=== PATIENT | female | born 1955 | race Caucasian/White ===

== ENCOUNTER 2022-10-22 09:02 | Outpatient (CLI) | payer MEDICARE, BC, SELFPAY ==
[2022-10-22 14:55] LABS: SARS PCR* Negative SARS-CoV-2 (Negative)
== END 2022-10-22 09:03 | disposition home or self-care (01) ==
LOC: FBOREF 09:02
PROVIDERS: PCP Internal Medicine; Visit Provider Orthopaedic Surgery
DX: Z20.822 Contact with and (suspected) exposure to COVID-19 (principal)
CPT/HCPCS: 87635

== ENCOUNTER 2022-10-23 08:48 | Day surgery (SDC) | payer MEDICARE, BC, SELFPAY ==
[2022-10-23] VITALS (25 sets, daily range): BP systolic 88–145; BP diastolic 45–83; PULSE 67–102; RESP 14–20; TEMP 35.7–37.1; O2SAT 92–100; BMI 32.1
[2022-10-23] MEDS: ACETAMINOPHEN 500 MG TABLET 1000 MG PO ×3 (08:50→20:07)
[2022-10-23] MEDS: fentaNYL 100 MCG/2 ML inj IVP (08:50)
[2022-10-23] MEDS: CELECOXIB 200 MG CAPSULE PO ×2 (08:50→20:06)
[2022-10-23] MEDS: OXYCODONE (CR) 10 MG TAB.ER.12H PO (08:50)
[2022-10-23] MEDS: MIDAZOLAM HCL 1 MG/ML inj IVP (08:50)
[2022-10-23] MEDS: LACTATED RINGERS 1000 ML 1,000 ML 100 ML IV (09:00)
[2022-10-23] MEDS: SODIUM CHLORIDE 0.9 % (FLUSH) 10 ML SYRINGE IVF (10:00)
--- NOTE | 2022-10-23 10:19 | SUR.PREOP ---
TIME?OUT:? PT/RN/MDA?VERIFICATION?OF?SURGICAL?SITE left knee,?PROCEDURE,?AND?CONSENT OBTAINED?PRIOR?TO?INVASIVE?PROCEDURE.
--- NOTE | 2022-10-23 10:22 | SUR.PREOP ---
TIME?OUT:?10:12 PT/RN/MDA?VERIFICATION?OF?SURGICAL?SITE left knee,?PROCEDURE,?AND?CONSENT OBTAINED?PRIOR?TO?INVASIVE?PROCEDURE.
[2022-10-23] MEDS: CEFAZOLIN 2 GM INJ IVP (10:51)
--- NOTE | 2022-10-23 10:59 | P.NB_ITS ---
Nerve Block Nerve Block Time Seen by Provider: 10:12 Date Seen: 10/23/22 Type of block requested by surgeon for post-operative analgesia: adductor canal Side: left Time out performed: Yes Verification of patient name: Yes Verification of date of : Yes Site marking: site marked Name of person performing procedure: Frankie Assistants, if any: Caleb Continuous monitoring Was continuous monitoring of O2 sat, B/P, monitor technician, recorded every 15 minutes?: Yes Procedure Checklist: sterile prep, needles and gloves Ultrasound guided. Images saved: Yes Medications given in 5ml increments after negative aspiration: Ropivicaine %: 0.5 mL: 20 Needle gauge: 20 Decadron (mg): 10 Precedex (mcg): 25 Patient tolerated procedure well: Yes Additional comments: Needle noted adjacent to nerve Block Charges Block Charge (with Pro Fee): Femoral Nerve Use of Ultrasound Machine for Block: Yes- US Guidance/pain block
--- NOTE | 2022-10-23 10:59 | W.PM.NB ---
Nerve Block Nerve Block Time Seen by Provider: 10:12 Date Seen: 10/23/22 Type of block requested by surgeon for post-operative analgesia: geniculars Side: left Time out performed: Yes Verification of patient name: Yes Verification of date of : Yes Site marking: site marked Name of person performing procedure: Frankie Assistants, if any: Caleb Continuous monitoring Was continuous monitoring of O2 sat, B/P, property assessment monitor, recorded every 15 minutes?: Yes Procedure Checklist: sterile prep, needles and gloves Medications given in 5ml increments after negative aspiration: Ropivicaine %: 0.5 mL: 9 Needle gauge: 25 Patient tolerated procedure well: Yes Block Charges Block Charge (with Pro Fee): Genicular Nerve Block Use of Ultrasound Machine for Block: No
--- NOTE | 2022-10-23 11:56 | CRLHL7_ITS ---
For Patients: As a result of the Cures Act, medical imaging exams and procedure reports are released immediately into your electronic medical record. You may view this report before your referring provider. If you have questions, please contact your health care provider. INDICATION: Postoperative left total knee arthroplasty, postoperative total knee arthroplasty TECHNIQUE: Knee radiograph 2 views left COMPARISON: None FINDINGS: Bone: No acute fractures or aggressive bone lesions are identified. Joint: The patient is status post a total knee arthroplasty with patellar resurfacing. No significant knee effusion is seen. Soft tissue: Anterior skin, subcutaneous gas and joint gas are present from recent surgery. No radiopaque foreign bodies are seen. IMPRESSION: 1. There is an unremarkable postoperative appearance of the knee arthroplasty. Dictated by: Andrew Colbert MD @ 10/23/2022 13:46:19 (Electronically Signed)
--- NOTE | 2022-10-23 11:59 | P.ORPRC_ITS ---
Procedure Note Date of procedure: 10/23/22 Procedure: SURGEON: Geoff Le MD DEAN: NESS Bean PREOPERATIVE DIAGNOSIS: Left knee osteoarthritis POSTOPERATIVE DIAGNOSIS: Left knee osteoarthritis NAME OF OPERATION: Left total knee arthroplasty ANESTHESIA: Spinal ESTIMATED BLOOD LOSS: 0 mL COMPLICATIONS: None SPECIMENS: None DRAINS: None PREOPERATIVE ANTIBIOTICS: Ancef 2 grams IMPLANTS: 1. J&J Attune # 5 narrow posterior stabilized femur 2. #4 fixed-bearing tibia 3. # 5 posterior stabilized, 5 mm fixed-bearing polyethylene 4. 35 patella INDICATIONS: The patient is a 67-year-old with a longstanding history of severe, unrelenting left knee pain secondary to end-stage (grade IV) left knee osteoarthritis. Despite appropriate nonoperative management, including activity modification, anti-inflammatories, nvvj-qjg-cxcebaj pain medication, bracing, physical therapy, and injections they continue to have pain and disability. Operative intervention was offered. The risks, benefits and expected outcomes were discussed in detail. These included but were not limited to: Infection, bleeding, injury to blood vessel or nerve, venous thromboembolism. All questions were answered to their satisfaction. Use of an assistant softball coach was necessary throughout the case for patient positioning and safety, soft tissue retraction, and closure. PROCEDURE: Spinal anesthesia was administered. The patient was placed supine on the operating table. The assistant softball coach made sure the patient was positioned appropriately. The lower extremity was prepped and draped in the usual sterile fashion. The limb was exsanguinated with the Froylan bandage. The pneumatic tourniquet was inflated to 300 mmHg. A standard anterior incision was made with the knee in flexion. Subcutaneous dissection was sharply taken through fascial layer #1. Full-thickness medial and lateral flaps were elevated. The assistant softball coach retracted the soft tissues and protected them throughout the case. A standard medial parapatellar approach was made. The patella was everted. The infrapatellar fat pad was preserved. The menisci and cruciate ligaments were sharply d?brided. Marginal osteophytes were d?brided with the rongeur. The drill was used to penetrate the femoral canal. The canal was aspirated and irrigated with pulse lavage. The intramedullary femoral guide was placed for a 5-degree valgus cut, removing 10 mm off the distal femur. The saw was used to make the cut. Whitesides line and the trans epicondylar axis were marked. The femoral sizing guide was pinned onto the distal femur. Three degrees of external rotation nicely parallels the transepicondylar axis. Pins were placed for posterior referencing. The four-in-one cutting guide was pinned onto the distal femur. The anterior, posterior, and chamfer cuts were made. The assistant softball coach protected the collateral ligaments. The box cutting guide was pinned. The box cuts were made. The boxed trial was placed and was an excellent fit. Drill holes for the lugs were made. Attention was then turned to the proximal tibia. The extramedullary tibial guide was placed for a neutral varus/valgus cut with 5 degrees of posterior slope, removing 2 mm based off the medial tibial surface. The assistant softball coach protected the collateral ligaments and the neurovascular bundle. The saw was used to make the cut. Trial components were placed. The knee was nicely balanced in both flexion and extension. The trial components were removed. The tray was placed in appropriate rotation, parallel to our tibial cutting pins. It was pinned by the assistant softball coach and the drill and the punch were used. The tray was removed. The punch was used again. We placed a bone plug in the femoral canal. Attention was then turned to the patella. [place] patellar thickness was 22 mm. The lobster claw resection guide was used with the 7.5 mm lilia. The saw was used to make the cut. Drill holes were made by the assistant softball coach. The trial was placed and was an excellent fit. Cancellous surfaces were irrigated with pulse lavage and thoroughly dried by the assistant softball coach. We cemented the tibial component, then the femoral component. We impacted the 5 mm polyethylene onto the tibial tray. The knee was brought into full extension. We then cemented the patellar component. Excessive cement was removed. The cement was allowed to harden. The knee was taken through a range of motion and was found to be nicely balanced in both flexion and extension. The patella tracks centrally. The assistant softball coach did a three minute dilute Betadine solution soak. The assistant softball coach irrigated the wound with 3 liters of normal saline via pulse lavage. The assistant softball coach reapproximated the extensor mechanism with #1 Vicryl in an interrupted dxvvst-ce-ikrdg fashion. The assistant softball coach then ran the extensor mechanism with a #1 PDO Stratafix. The assistant softball coach closed the subcutaneous tissues with a 3-0 Stratafix and the skin with a running 3-0 Stratafix in a subcuticular fashion. Glue was used to seal the skin. The assistant softball coach placed a dry dressing, ABA stocking, and Polar Care. Sponge and needle counts were correct x2. The patient tolerated the procedure well. There were no apparent complications. They were carefully transferred to the hospital bed and taken to the postanesthesia care unit in satisfactory condition. PLAN: The patient will be mobilized with physical therapy. Aspirin will be used for DVT prophylaxis. They will be discharged to home once medically appropriate.
--- NOTE | 2022-10-23 12:36 | W.ANESCHARGE ---
Anesthesia Charges Start Date/Time Anesthesia Start Date: 10/23/22 Anesthesia Start Time: 10:37 Stop Date/Time Anesthesia Stop Date: 10/23/22 Anesthesia Stop Time: 12:40 Summary Emergency: No
--- NOTE | 2022-10-23 12:41 | W.ANESCHARGE ---
Anesthesia Charges Start Date/Time Anesthesia Start Date: 10/23/22 Anesthesia Start Time: 10:37 Stop Date/Time Anesthesia Stop Date: 10/23/22 Anesthesia Stop Time: 12:40 Summary Emergency: No
--- NOTE | 2022-10-23 13:21 | SUR.PHASEI ---
patient met discharge criteria per anesthesia
--- NOTE | 2022-10-23 13:28 | PM.IMPN1 ---
Progress Note: A&P Assessment and plan (1) Osteoarthritis of left knee: Status: Acute Plan 1. POD #0 s/p LTKA under spinal anesthesia -pain control, diet, dvt ppx per surgery -check BMp and hgb in AM -home med rec completed for discharge, hold meloxicam at discharge Subjective Date Seen: 10/23/22 Interval history: patient POD #0 left TKA following surgery endorses nausea and dizziness denies chest pain denies sob tolerating ice chips Exam Narrative: Exam Narrative: GeN: NAD HEENT: NCAT EOMI MMM CV: RRR s1 s2 LCTAB Abd: Soft, nt, nd Neuro: AOX3, CN intact Const: Vital Signs, click to edit/add: Vital Signs - 24 hr 10/23/22 09:19 10/23/22 10:16 10/23/22 10:20 Temperature 98.7 F 98.7 F 98.7 F Pulse Rate 102 H 90 76 Respiratory Rate 20 20 20 Blood Pressure 145/83 H 130/77 129/61 Pulse Oximetry 99 99 99 Oxygen Delivery Me thod Room Air Nasal Cannula Nasal Cannula Oxygen Flow Rate 2 2 10/23/22 10:25 10/23/22 12:36 10/23/22 12:40 Temperature 98.7 F 98.5 F 98.5 F Pulse Rate 71 85 85 Respiratory Rate 20 15 14 Blood Pressure 117/59 L 88/45 L 91/51 L Pulse Oximetry 99 93 93 Oxygen Delivery Me thod Nasal Cannula Room Air Oxygen Flow Rate 2 0 10/23/22 12:45 10/23/22 12:50 10/23/22 12:55 Temperature 98.5 F 98.5 F 98.5 F Pulse Rate 81 80 77 Respiratory Rate 14 15 18 Blood Pressure 96/58 L 99/57 L 113/67 Pulse Oximetry 94 96 92 Oxygen Delivery Me thod Room Air Room Air Room Air Oxygen Flow Rate 0 0 0 10/23/22 13:00 10/23/22 13:05 10/23/22 13:10 Temperature 98.5 F 97.3 F L 97.3 F L Pulse Rate 78 76 75 Respiratory Rate 15 14 16 Blood Pressure 111/60 121/69 123/69 Pulse Oximetry 94 96 96 Oxygen Delivery Me thod Room Air Room Air Room Air Oxygen Flow Rate 0 0 0
[2022-10-23] MEDS: ONDANSETRON 2 MG/ML inj 4 MG IVP ×2 (13:31→16:21)
[2022-10-23] MEDS: LACTATED RINGERS 1000 ML 1,000 ML 75 ML IV (14:09)
[2022-10-23] MEDS: CEFAZOLIN 2 GM in 0.9 % SODIUM CHLORIDE Mini-bag 100 ML IVPB ×2 (14:56→22:52)
[2022-10-23] MEDS: OXYCODONE 5 MG TABLET PO ×5 (16:21→23:45)
--- NOTE | 2022-10-23 19:57 | PC.NURSE ---
Pt. up to floor at 1315, VSS. Pt. alert and oriented x4. RA, SBA w/walker. dressing to left knee C/D/I. Pt. had N/V zofran administered x2 see emar. pt. rates pain 3-4/10 Oxy administered w/relief. Pt. voided and up to chair at 1700. Tolerating a reg diet. IV in left arm saline locked.
[2022-10-23] MEDS: ASPIRIN 81 MG TABLET EC PO (20:07)
[2022-10-23] MEDS: SENNOSIDES 1 TAB TABLET 2 TAB PO (20:07)
[2022-10-23] MEDS: LORazepam 0.5 MG TABLET PO (22:54)
[2022-10-23] MEDS: SODIUM CHLORIDE 0.9 % (FLUSH) 10 ML SYRINGE 5 ML IVF (22:56)
[2022-10-24] MEDS: OXYCODONE 5 MG TABLET PO ×4 (02:48→11:17)
[2022-10-24] MEDS: ACETAMINOPHEN 500 MG TABLET 1000 MG PO ×2 (02:48→09:12)
[2022-10-24 03:00] VITALS: BP 153/75; PULSE 69; RESP 16; TEMP 36.4; O2SAT 93
--- NOTE | 2022-10-24 05:04 | PC.NURSE ---
[id number] Pt doing well, slept during night between cares, pain controlled with oral prn/scheduled pain meds, Dressing to L knee C/D/I, denies N/V. ambulating with walker/gb/SBA to br and hallways x2, tolerated very well. Ice to site during shift.
[2022-10-24] MEDS: CEFAZOLIN 2 GM in 0.9 % SODIUM CHLORIDE Mini-bag 100 ML IVPB (06:43)
[2022-10-24 06:48] LABS: Basophils Percent Auto 0.1 % (0.0-3.0); Eosinophils Percent Auto 0.1 % (0.0-7.0); Hematocrit 38.6 % (33.0-51.0); Hemoglobin* 12.6 gm/dL (12.0-16.0); Immature Granulocytes Pct Auto 0.3 %; Lymphocytes Percent Auto 7.4 % (20-44); Mean Corpuscular HGB Conc 33 gm/dL (32-36); Mean Corpuscular Hemoglobin 32 pg (26-34); Mean Corpuscular Volume 97 fL (80-100); Monocytes Percent Auto 9.5 % (0.0-11.0); Neutrophils Percent Auto 82.6 % (42.0-72.0); Platelet Count* 201 K/uL (140-440); RDW Coefficient of Variation % 13.2 % (11.5-15.5); White Blood Count* 11.42 K/uL (4.50-11.00)
[2022-10-24 06:53] LABS: Slide Review Reflex No
[2022-10-24 07:00] VITALS: BP 138/82; PULSE 87; PULSE 95; RESP 16; RESP 87; TEMP 36.8; O2SAT 95
[2022-10-24 07:02] LABS: INR 1.04 (0.91-1.10); Potassium* 5.1 mmol/L (3.6-5.1); Prothrombin Time 14.2 Seconds; Sodium* 137 mmol/L (135-149)
[2022-10-24 07:06] LABS: Blood Urea Nitrogen* 17 mg/dL (7-30); Creatinine* 0.7 mg/dL (0.5-1.5); Est. Creatinine Clearance* 44.54; Estimated Glomerular Filt Rate 94 ml/min
--- NOTE | 2022-10-24 08:06 | PM.ORPN ---
Subjective Subjective Time Seen by Provider: 07:45 Date Seen: 10/24/22 Principal diagnosis: S/p day 1 left total knee arthroplasty Interval history: Martha is doing well this morning and is resting comfortably in bed. Patient complains of mild left knee pain well managed with ice, oxycodone and acetaminophen. Denies: fever, chills, body aches, chest pain, SOB. Denies BM since surgery, but admits to flatulence. Denies appetite. Patient has not yet been seen by Physical Therapy. No acute events over night. At the end of our conversation, Martha's sister, Shana, arrived. Ortho Exam Narrative Exam Narrative: Incision/Dressing: Dressing appears clean and dry. No drainage present. Mepilex intact. Left knee appears moderately swollen but supple with no obvious erythema, fluctuance or excessive warmth. No ecchymosis or erythematous streaking. Warmth around the wound is appropriate. Ice is being utilized as needed. CMS: Intact distally with 2+ Dorsalis pedis and Posterior Tibial pulses. 5/5 motor strength dorsal and plantar flexion. Confirmed sensation distally. Intact straight leg raise. Calf: Bilateral calves are supple, with no swelling, pain, tenderness, erythema, discoloration or coolness to the touch. Constitutional: Patient is alert and oriented x3. Patient is in no acute distress and converses without labored breathing. Patient is able to make decisions and demonstrates good insight. Patient is pleasant and cooperative. Affect is full range and appropriate for the circumstances. Const Vital Signs, click to edit/add: Vital Signs - 24 hr 10/23/22 09:19 10/23/22 10:16 10/23/22 10:20 Temperature 98.7 F 98.7 F 98.7 F Pulse Rate 102 H 90 76 Pulse Rate [Left Pulse Oximeter] Respiratory Rate 20 20 20 Blood Pressure 145/83 H 130/77 129/61 Blood Pressure [Right Arm] Pulse Oximetry 99 99 99 Oxygen Delivery Method Room Air Nasal Cannula Nasal Cannula Oxygen Flow Rate 2 2 10/23/22 10:25 10/23/22 12:36 10/23/22 12:40 Temperature 98.7 F 98.5 F 98.5 F Pulse Rate 71 85 85 Pulse Rate [Left Pulse Oximeter] Respiratory Rate 20 15 14 Blood Pressure 117/59 L 88/45 L 91/51 L Blood Pressure [Right Arm] Pulse Oximetry 99 93 93 Oxygen Delivery Method Nasal Cannula Room Air Oxygen Flow Rate 2 0 10/23/22 12:45 10/23/22 12:50 10/23/22 12:55 Temperature 98.5 F 98.5 F 98.5 F Pulse Rate 81 80 77 Pulse Rate [Left Pulse Oximeter] Respiratory Rate 14 15 18 Blood Pressure 96/58 L 99/57 L 113/67 Blood Pressure [Right Arm] Pulse Oximetry 94 96 92 Oxygen Delivery Method Room Air Room Air Room Air Oxygen Flow Rate 0 0 0 10/23/22 13:00 10/23/22 13:05 10/23/22 13:10 Temperature 98.5 F 97.3 F L 97.3 F L Pulse Rate 78 76 75 Pulse Rate [Left Pulse Oximeter] Respiratory Rate 15 14 16 Blood Pressure 111/60 121/69 123/69 Blood Pressure [Right Arm] Pulse Oximetry 94 96 96 Oxygen Delivery Method Room Air Room Air Room Air Oxygen Flow Rate 0 0 0 10/23/22 13:52 10/23/22 13:44 10/23/22 13:30 Temperature 96.3 F L 96.3 F L 96.7 F L Pulse Rate 76 Pulse Rate [Left Pulse Oximeter] 76 68 Respiratory Rate 16 16 16 Blood Pressure Blood Pressure [Right Arm] 125/72 125/72 141/78 H Pulse Oximetry 97 96 Oxygen Delivery Method Room Air Room Air Room Air Oxygen Flow Rate 0 0 0 10/23/22 15:00 10/23/22 15:00 10/23/22 13:45 Temperature 96.3 F L Pulse Rate Pulse Rate [Left Pulse Oximeter] 74 67 Respiratory Rate 16 16 Blood Pressure Blood Pressure [Right Arm] 101/80 Pulse Oximetry 98 94 Oxygen Delivery Method Room Air Oxygen Flow Rate 0 10/23/22 14:00 10/23/22 14:15 10/23/22 14:45 Temperature 96.3 F L 96.3 F L 96.7 F L Pulse Rate Pulse Rate [Left Pulse Oximeter] 77 72 74 Respiratory Rate 16 16 16 Blood Pressure Blood Pressure [Right Arm] 118/64 117/61 130/70 Pulse Oximetry 96 97 100 Oxygen Delivery Method Room Air Room Air Room Air Oxygen Flow Rate 0 0 0 10/23/22 15:00 10/23/22 19:47 10/23/22 17:00 Temperature 96.7 F L 96.7 F L 96.7 F L Pulse Rate Pulse Rate [Left Pulse Oximeter] 74 74 72 Respiratory Rate 16 16 16 Blood Pressure Blood Pressure [Right Arm] 127/81 133/76 134/72 Pulse Oximetry 98 99 99 Oxygen Delivery Method Room Air Room Air Room Air Oxygen Flow Rate 0 0 0 10/23/22 18:00 10/23/22 19:48 10/23/22 23:00 Temperature 96.7 F L 97.0 F L Pulse Rate Pulse Rate [Left Pulse Oximeter] 74 74 Respiratory Rate 16 16 Blood Pressure Blood Pressure [Right Arm] 119/63 136/71 Pulse Oximetry 99 97 96 Oxygen Delivery Method Room Air Room Air Oxygen Flow Rate 0 0 10/24/22 03:00 10/24/22 03:00 10/24/22 07:00 Temperature 97.6 F 98.3 F Pulse Rate Pulse Rate [Left Pulse Oximeter] 69 87 Respiratory Rate 16 87 H Blood Pressure Blood Pressure [Right Arm] 153/75 H 138/82 Pulse Oximetry 93 95 Oxygen Delivery Method Room Air Room Air Room Air Oxygen Flow Rate 0 0 10/24/22 07:00 10/24/22 07:00 Temperature Pulse Rate Pulse Rate [Left Pulse Oximeter] 95 Respiratory Rate 16 Blood Pressure Blood Pressure [Right Arm] Pulse Oximetry 95 Oxygen Delivery Method Oxygen Flow Rate Assessment and Plan Assessment and plan (1) Osteoarthritis of left knee: Problem details: DOS: 10/23/22. Status: Acute Assessment and Plan: - Complete 23 hour perioperative antibiotics. - PT/OT consults for education and assistance. - Social consult for discharge planning. - Weight bear as tolerated. - DVT prophylaxis includes: aspirin 81 mg BID x 1 month. Also bilateral knee high Taras stockings (x 1 month), frequent ambulation and ankle pumps when sedentary. - Anticipate patient will be discharged to home this afternoon if the patient remains medically stable, pain is controlled and is safe with ambulation. - Outpatient physical therapy will be at [facility] starting Thursday. - Return to clinic in 1 week for a wound check. Mepilex dressing will be removed at this appointment. Remove sooner if dressing becomes saturated. - Return to clinic in [address] Le. - Prescribed analgesics as needed. Patient is content with current narcotic medications. Minimize narcotic pain medication use; wean off and discontinue as soon as possible. - Phone Orthopedics with any questions or concerns.
[2022-10-24] MEDS: ASPIRIN 81 MG TABLET EC PO (09:12)
[2022-10-24] MEDS: CELECOXIB 200 MG CAPSULE PO (09:12)
[2022-10-24] MEDS: SENNOSIDES 1 TAB TABLET 2 TAB PO (09:13)
[2022-10-24] MEDS: SODIUM CHLORIDE 0.9 % (FLUSH) 10 ML SYRINGE 5 ML IVF (09:32)
[2022-10-24] MEDS: ONDANSETRON 2 MG/ML inj 4 MG IVP (09:32)
--- NOTE | 2022-10-24 11:36 | PC.NURSE ---
Discharge: Patient pleasant and cooperative. Patient vitally stable, lungs clear, BS WNL, IV removed catheter intact. Patient rates pain at most 3/10, scheduled tylenol given and 10 mg of oxy given once. Patient had an emesis of 600cc right after swallowing all morning meds. Zophran was given once and later another 5 mg of oxy was given. Patient 1 assist, walker, gb. Patient tolerating regular diet and urinating. Left knee dressing C/D/I. Patient signed belongings sheet and discharge form. Patient had no further questions regarding discharge. Patient left the floor by wheelchair at 1133 with belongings.
== END 2022-10-24 11:33 | disposition home or self-care (01) ==
LOC: OR 08:49 → MEDSURG 08:56
PROVIDERS: PCP Internal Medicine; Visit Provider Orthopaedic Surgery
PROC: (CPT 27447; principal; 2022-10-23 10:00)
DX: M17.12 Unilateral primary osteoarthritis, left knee (principal); M25.562 Pain in left knee
CPT/HCPCS: 27447; 01402; 36415; 64447; 64454; 73560; 76942; 82565; 84132; 84295; 84520; 85025; 85610; 97110; 97116; 97161; 97165; 97535; A9270; C1776; J0690; J1100; J2250; J2370; J2405; J2704; J2795; J3010; J7120

== ENCOUNTER 2024-08-08 13:46 | Outpatient (RCR) | payer MEDICARE, BC, SELFPAY ==
--- NOTE | 2024-08-08 14:27 | PT.OPEX ---
PT [facility] Out[facility] Eval PT [facility] Outpatient Eval Start: 07/26/24 14:24 Freq: Status: Active Protocol: Document 08/08/24 08:18 MLS (Rec: 08/08/24 14:25 MLS [id number]) E-signed By Vanessa Ponce DPT Physical Therapy Outpatient Evaluation Insurance Information Recert Due Date 11/05/24 Insurance Name Medicare B,[employer] Medical Diagnosis M17.11 Unilateral primary OA, right knee Z96.651 presence of right artificial knee joint s/p right TKA 08/16/24 Treating Diagnosis TKA protocol Referring MD Dr. Le Subjective Subjective Patient is a 69 year old female who presents to physical therapy for her pre- op appointment prior to right TKA on 08/16/24. [facility] [place]. Significant past medical history includes left and right hip replacement and left knee replacement (2021). Pain Comments Today: 0/10 on a 0-10 pain scale with 10 = extreme pain At its worst: 7/10 At its best: 0/10 Current Work Status Retired Objective Other/Pertinent Objective GAIT/FUNCTIONAL MOBILITY No antalgic gait today KNEE ROM Left knee: Grossly tested WNL Right: Extension/Flexion: 0-120 HIP ROM Grossly tested WNL LLE MMT: Hip flexion: R 4/5 L 4/5 Hip abduction: R 4/5 L 4/5 Hip extension: R 4/5 L 4/5 Knee flexion: R 4/5 L 4/5 Knee extension: R 4/5 L 4/5 Reviewed/demonstrated on frequency to perform HEP post operatively including: long sitting quad ankle pumps supine heel slide with strap supine quad sets supine SAQ SLR with quad set seated long arc quad seated knee flexion AAROM supine knee extension stretch on towel roll Extensive discussion and education on what to expect post operatively. Time was spent discussing home modifications, Assistive devices, pain control, fall prevention, hospital stay time line, and assist needed for activities post surgically. Pt questions were answered and demonstrated understanding. Assessment Assessment/Impression Pt is a 69 year old female who presents to PT for her pre-op appointment prior to right TKA surgery on 08/16/24. Patient also has notable objective findings including limited ROM and decreased strength which are also likely contributing to the problem. Patient is a good candidate for skilled therapy to target deficits described above. Skilled PT intervention is necessary for use of therapeutic exercise manual therapy, neuromuscular re- education, gait training, and therapeutic activity. Functional impairments include difficulty with: standing, walking, exercising, and ADLs. See appropriate sections of PT eval for complete list of goals and POC. D/C plan and criteria is for pt to achieve the goals as listed below or until max rehab potential is met. Pt was agreeable with plan of care and goals established. She is completing her post-op PT in [place]. Primary Functional Limitations standing walking exercising ADLs Plan of Care Rehabilitation Potential Good Physical Therapy Goals Within 10-12 weeks: 1) Pt will improve knee AROM at least 0 to 120 for improved sit to stand transfers 2) Pt will demonstrate negative extensor lag during straight leg raise exercise with ability to complete at least 15 reps with 5 sec hold to improve strength for ambulation 3) Patient will demonstrate/ report ability to walk for 15 minutes w/SPC with pain level <1/10, to allow for community and household ambulation. 4) Pt will be indep with HEP for rn long term care management of pain/symptoms 5) Patient will ascend/descend at least 10 steps using single rail and reciprocal pattern to improve ease of mobility at home/community 7) Patient will demonstrate/ report ability to walk for 15 minutes w/o AD with pain level <1/10, to allow for community and household ambulation. Coordination/Communication With Referral Source Treatment Plan/Direct Interventions Neuromuscular Re-ed, Therapeutic Activities, Therapeutic Exercises Patient Will Be Discharged From Therapy Independently Progressing Evaluation Billing Untimed Code Treatment Minutes 25 Complexity Low Certification Information Provider Signature Required Yes Provider Signature Shows Agreement With POC & Medical Necessity Physician NPI Number Write NPI# Here Physician Comment/Change : Physician Signature & Date Requested Please Sign/Date Here
== END 2024-11-08 12:56 | disposition home or self-care (01) ==
PROVIDERS: PCP Internal Medicine; Visit Provider Orthopaedic Surgery
DX: M17.11 Unilateral primary osteoarthritis, right knee (principal); Z96.651 Presence of right artificial knee joint; Z51.89 Encounter for other specified aftercare
CPT/HCPCS: 97161

== ENCOUNTER 2024-08-16 06:03 | Day surgery (SDC) | payer MEDICARE, BC, SELFPAY ==
[2024-08-16] VITALS (17 sets, daily range): BP systolic 102–182; BP diastolic 60–88; PULSE 66–85; RESP 12–20; TEMP 36.1–36.5; O2SAT 96–100; BMI 31.1
[2024-08-16] MEDS: LACTATED RINGERS 1000 ML 1,000 ML 100 ML IV ×2 (06:45→08:05)
[2024-08-16] MEDS: SODIUM CHLORIDE 0.9 % (FLUSH) 10 ML SYRINGE IVF (06:45)
[2024-08-16] MEDS: CELECOXIB 200 MG CAPSULE PO (07:09)
[2024-08-16] MEDS: ACETAMINOPHEN 500 MG TABLET 1000 MG PO (07:09)
--- NOTE | 2024-08-16 07:23 | SUR.PREOP ---
TIME?OUT:?right knee total, left knee debridement PT/RN/MDA?VERIFICATION?OF?SURGICAL?SITE,?PROCEDURE,?AND?CONSENT OBTAINED?PRIOR?TO?INVASIVE?PROCEDURE.
[2024-08-16] MEDS: CEFAZOLIN 2 GM INJ IVP (07:40)
[2024-08-16] MEDS: TRANEXAMIC ACID 100 MG/ML INJ 1000 MG IV (07:45)
[2024-08-16] MEDS: BUPIVACAINE 0.25% 30 ML INJECTION (08:35)
--- NOTE | 2024-08-16 09:45 | CRLHL7_ITS ---
For Patients: As a result of the Cures Act, medical imaging exams and procedure reports are released immediately into your electronic medical record. You may view this report before your referring provider. If you have questions, please contact your health care provider. Indication: Postop TKA Technique: Right knee 3 views Comparison: Right knee radiograph 06/29/2024 Findings and impression: Post right knee total knee arthroplasty. Hardware is intact and without evidence of complication. No acute fracture. Expected postoperative gas in the joint space and in subcutaneous soft tissues. Mild soft tissue swelling. Dictated by Aubree Waldron MD @ 08/17/2024 12:34:56 PM (Electronically Signed)
[2024-08-16] MEDS: ONDANSETRON 2 MG/ML inj 4 MG IVP (10:21)
[2024-08-16] MEDS: METOCLOPRAMIDE HCL 5 MG/ML INJ 10 MG IVP (10:40)
--- NOTE | 2024-08-16 11:21 | P.ORPRC_ITS ---
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 J&J Attune #4 posterior stabilized femur 2. #4 fixed-bearing tibia 3. #4 posterior stabilized, 5 mm fixed-bearing polyethylene 4. 35 patella INDICATIONS: The patient is a 69-year-old with a longstanding history of severe, unrelenting right knee pain secondary to end-stage (grade IV) right knee osteoarthritis. Despite appropriate nonoperative management, including activity modification, anti-inflammatories, [id number] pain medication, bracing, physical therapy, and injections they continue to have pain and disability. Her left knee replacement has painful crepitation, consistent with patellar clunk syndrome. Operative intervention was offered. The risks, benefits and expected outcomes were discussed in detail. These included but were not limited to: Infection, bleeding, injury to blood vessel or nerve, venous thromboembolism. All questions were answered to their sati sfaction. Use of an dental assistant instructor was necessary throughout the case for patient positioning and safety, soft tissue retraction, and closure. PROCEDURE: Spinal anesthesia was administered. The patient was placed supine on the operating table. The dental assistant instructor made sure the patient was positioned appropriately. The left lower extremity was prepped and draped in the usual sterile fashion. The limb was exsanguinated with the Froylan bandage. The pneumatic tourniquet was inflated to 300 mmHg. A standard anterolateral portal was established. The arthroscope was introduced. The working portal was established anteromedially. Diagnostic arthroscopy was performed with findings as follows: The patellar component is intact with circumferential scarring surrounding it. The femoral component is normal, the tibial polyethylene is normal. The scarring posterior to the patellar tendon was debrided with the radiofrequency probe and shaver. A superolateral portal was placed. Then we aggressively debrided around the patellar component and posterior to the quads tendon with the shaver and radiofrequency probe. Portals were closed with a 3-0 nylon. Attention was then turned to the right lower extremity. It was prepped and draped in the usual sterile fashion. The limb was exsanguinated with a Froylan bandage. The pneumatic tourniquet was inflated to 300 mmHg. A standard anterior incision was made with the knee in flexion. Subcutaneous dissection was sharply taken through fascial layer #1. Full-thickness medial and lateral flaps were elevated. The dental assistant instructor retracted the soft tissues and protected them throughout the case. A standard subvastus approach was made. The patella was subluxed. The infrapatellar fat pad was debrided. The menisci and cruciate ligaments were sharply d?brided. Marginal osteophytes were d?brided with the rongeur. The drill was used to penetrate the femoral canal. The canal was aspirated and irrigated with pulse lavage. The intramedullary femoral guide was placed for a 5-degree valgus cut, removing 10 mm off the distal femur. The saw was used to make the cut. Whitesides line and the trans epicondylar axis were marked. The femoral sizing guide was pinned onto the distal femur. Three degrees of external rotation nicely parallels the transepicondylar axis. Pins were placed for posterior referencing. The four-in-one cutting guide was pinned onto the distal femur. The anterior, posterior, and chamfer cuts were made. The dental assistant instructor protected the collateral ligaments. The box cutting guide was pinned. The box cuts were made. The boxed trial was placed and was an excellent fit. Drill holes for the lugs were made. Attention was then turned to the proximal tibia. The extramedullary tibial guide was placed for a neutral varus/valgus cut with 5 degrees of posterior slope, removing 0 mm based off the medial tibial surface. The dental assistant instructor protected the collateral ligaments and the neurovascular bundle. The saw was used to make the cut. Trial components were placed. The knee was nicely balanced in both flexion and extension. The trial components were removed. The tray was placed in appropriate rotation, parallel to our tibial cutting pins. It was pinned by the dental assistant instructor and the drill and the punch were used. The tray was removed. The punch was used again. We placed a bone plug in the femoral canal. Attention was then turned to the patella. [place] patellar thickness was 23 mm. The lobster claw resection guide was used with the 9.5 mm lilia. The saw was used to make the cut. Drill holes were made by the dental assistant instructor. The trial was placed and was an excellent fit. Cancellous surfaces were irrigated with pulse lavage and thoroughly dried by the dental assistant instructor. We cemented the tibial component, then the femoral component. We impacted the 5 mm polyethylene onto the tibial tray. The knee was brought into full extension. We then cemented the patellar component. Excessive cement was removed. The cement was allowed to harden. The knee was taken through a range of motion and was found to be nicely balanced in both flexion and extension. The patella tracks centrally. The dental assistant instructor did a three minute dilute Betadine solution soak. The dental assistant instructor irrigated the wound with 3 liters of normal saline via pulse lavage. The dental assistant instructor reapproximated the extensor mechanism with #1 Vicryl in an interrupted [id number] fashion. The dental assistant instructor then ran the extensor mechanism with a #1 PDO Stratafix. The dental assistant instructor closed the subcutaneous tissues with a 3-0 Stratafix and the skin with a running 3-0 Stratafix in a subcuticular fashion. Glue was used to seal the skin. The dental assistant instructor placed a dry dressing. Sponge and needle counts were correct x2. The patient tolerated the procedure well. There were no apparent complications. They were carefully transferred to the hospital bed and taken to the postanesthesia care unit in satisfactory condition. PLAN: The patient will be mobilized with physical therapy. Aspirin will be used for DVT prophylaxis. They will be discharged to home once medically appropriate.
--- NOTE | 2024-08-16 11:22 | P.NB_ITS ---
Nerve Block Nerve Block Time Seen by Provider: 07:30 Date Seen: 08/16/24 Type of block requested by surgeon for post-operative analgesia: adductor canal Side: right Time out performed: Yes Verification of patient name: Yes Verification of date of : Yes Site marking: site marked Name of person performing procedure: Frankie Continuous monitoring Was continuous monitoring of O2 sat, B/P, phototypesetting equipment monitor, recorded every 15 minutes?: Yes Procedure Checklist: sterile prep, needles and gloves Ultrasound guided. Images saved: Yes Medications given in 5ml increments after negative aspiration: Ropivicaine %: 0.5 mL: 20 Needle gauge: 20 Decadron (mg): 10 Precedex (mcg): 25 Patient tolerated procedure well: Yes Additional comments: Needle noted adjacent to nerve Block Charges Block Charge (with Pro Fee): Femoral Nerve Use of Ultrasound Machine for Block: Yes- US Guidance/pain block
--- NOTE | 2024-08-16 11:22 | P.NB_ITS ---
Nerve Block Nerve Block Time Seen by Provider: 07:30 Date Seen: 08/16/24 Type of block requested by surgeon for post-operative analgesia: geniculars Side: right Time out performed: Yes Verification of patient name: Yes Verification of date of : Yes Site marking: site marked Name of person performing procedure: Frankie Continuous monitoring Was continuous monitoring of O2 sat, B/P, monitoring analyst, recorded every 15 minutes?: Yes Procedure Checklist: sterile prep, needles and gloves Medications given in 5ml increments after negative aspiration: Ropivicaine %: 0.5 mL: 9 Needle gauge: 25 Patient tolerated procedure well: Yes Block Charges Block Charge (with Pro Fee): Genicular Nerve Block Use of Ultrasound Machine for Block: No
--- NOTE | 2024-08-16 11:23 | W.ANESCHARGE ---
Anesthesia Charges Start Date/Time Anesthesia Start Date: 08/16/24 Anesthesia Start Time: 07:39 Stop Date/Time Anesthesia Stop Date: 08/16/24 Anesthesia Stop Time: 10:21 Summary Extremes of Age - Over 70 or under 1: MDA
--- NOTE | 2024-08-16 12:37 | SUR.PHASEII ---
pt to PT. did very well with transfer to wheelchair. voided prior to going to PT
[2024-08-16] MEDS: OXYCODONE 5 MG TABLET PO (13:10)
--- NOTE | 2024-08-16 13:27 | SUR.PHASEII ---
Pt did well with PT. Pt voided x2. Pt states she feels like she is emptying her bladder when she voids. Tolerated crackers and water. Pt states she would like something for pain before she leaves. Oxycodone given. Answered all questions regarding discharge instructions. Ice packs sent home with friend. Wheelchair out to car with friend.
== END 2024-08-16 13:30 | disposition home or self-care (01) ==
PROVIDERS: PCP Internal Medicine; Visit Provider Orthopaedic Surgery
PROC: (CPT 27447; principal; 2024-08-16 07:30)
PROC: (CPT 29870; 2024-08-16 07:30)
DX: M17.11 Unilateral primary osteoarthritis, right knee (principal); M24.662 Ankylosis, left knee; M25.862 Other specified joint disorders, left knee; Z96.652 Presence of left artificial knee joint; G89.18 Other acute postprocedural pain; M25.562 Pain in left knee; M25.561 Pain in right knee
CPT/HCPCS: 27447; 29884; 01402; 64447; 64454; 73560; 76942; 97110; 97116; 97161; 99100; A9270; C1776; J0665; J0690; J1100; J2405; J2704; J2765; J2795; J3490; J7120